=== PATIENT | female | born 1980 | race Two or more races ===

== ENCOUNTER 2021-08-23 11:16 | Emergency (ER) | payer MEDICAID, OTHER ==
[~2021-08-23] VITALS: Ht 162.6 cm; Wt 70.3 kg
[2021-08-23 12:38] LABS: Urine Bacteria FEW /hpf (None Seen); Urine Blood 3+ /uL (Negative); Urine WBC 1680 /hpf (0 - 5); Urine WBC Clumps PRESENT /hpf (None Seen)
[2021-08-23 12:43] LABS: Urine Specific Gravity 1.021 (1.001-1.035)
[2021-08-23 14:40] LABS: Basophils # (auto) 0 10 ^3/uL (0-0.2); Basophils % (auto) 0.3 % (0.0-2.0); Eosinophils # (auto) 0 10 ^3/uL (0-0.8); Eosinophils % (auto) 0.2 % (0.0-7.0); Hematocrit 40.4 % (36.0-46.0); Hemoglobin 13.4 g/dL (12.2-16.2); Lymphocytes # (auto) 0.7 10 ^3/uL (0.4-5.4); Mean Corpuscular Hemoglobin 28.6 pg (28.0-32.0); Mean Corpuscular Hgb Conc. 33.2 g/dL (32.0-36.0); Mean Corpuscular Volume 86.3 fL (80.0-100.0); Monocytes # (auto) 0.3 10 ^3/uL (0-1.3); Monocytes % (auto) 2.3 % (0.0-12.0); Neutrophils # (auto) 10.8 10 ^3/uL (1.6-8.6); Neutrophils % (auto) 91.2 % (37.0-80.0); Red Blood Cells 4.68 10^6/uL (4.0-5.20); Red Cell Distribution Width 14.8 % (11.8-14.3); White Blood Cell 11.9 10^3/uL (4.4-10.8)
[2021-08-23 14:44] LABS: INR 0.99 (0.9-1.15); Partial Thromboplastin Time 21.8 sec (23.6-33.0)
[2021-08-23 14:56] LABS: Albumin 3.9 g/dL (3.4-5.0); Calcium 8.9 mg/dL (8.5-10.1); Potassium 4.2 mmol/L (3.5-5.1)
[2021-08-23 14:59] LABS: Bilirubin, Total 0.5 mg/dL (0.2-1.0); Total Protein 7.2 g/dL (6.4-8.2)
[2021-08-23] MEDS ORDERED: cefTRIAXone 1GM/50ML D5W 50 ML IV ONE (18:00)
[2021-08-23] MEDS ORDERED: LACTATED RINGER'S 1,000 ML IV ONE (18:00)
[2021-08-23 19:01] VITALS: BP 139/76
== END 2021-08-23 21:10 | disposition left against medical advice (07) ==
LOC: ER 11:16 → OVERFLOW 19:35 → UNDOADMIN 19:35 → ER 21:10
DX: O20.8 Other hemorrhage in early pregnancy (principal); O26.891 Other specified pregnancy related conditions, first trimester; R42 Dizziness and giddiness; Z3A.01 Less than 8 weeks gestation of pregnancy
CPT/HCPCS: 36415; 76801; 76817; 80053; 81001; 84702; 85025; 85610; 85730; 86850; 86900; 86901; J0696

== ENCOUNTER 2022-08-02 19:09 | Emergency (ER) | payer MEDICAID ==
[~2022-08-02] VITALS: Ht 154.9 cm; Wt 70.9 kg
[2022-08-02] MEDS: diphenhdrAMINE HCL 50 MG/1 ML VL IM ONE ×2 (19:40→19:45)
[2022-08-02] MEDS ORDERED: DexAMETHasone SOD PHOS 10MG/1ML VIAL INJ IM ONE (19:45)
[2022-08-02 22:47] VITALS: BP 112/75
== END 2022-08-02 23:11 | disposition home or self-care (01) ==
LOC: ER 19:09
DX: T78.1XXA Other adverse food reactions, not elsewhere classified, initial encounter (principal); T78.3XXA Angioneurotic edema, initial encounter; X58.XXXA Exposure to other specified factors, initial encounter
CPT/HCPCS: 96372; 99283; J1100; J1200

== ENCOUNTER 2022-10-12 19:06 | Emergency (ER) | payer MEDICAID ==
[~2022-10-12] VITALS: Ht 157.5 cm; Wt 70.5 kg
[2022-10-12 19:15] VITALS: BP 140/97
[2022-10-12] MEDS ORDERED: EPINEPHrine HCL 1 MG/1 ML AMP IM ONE (19:30)
[2022-10-12] MEDS ORDERED: methylPREDNISolone SOD SUCC 125 MG/2 ML VL IV ONE (19:30)
[2022-10-12] MEDS ORDERED: diphenhdrAMINE HCL 50 MG/1 ML VL IV ONE (19:30)
[2022-10-12] MEDS ORDERED: FAMOTIDINE (10MG/ML) 2ML VL IV ONE (19:30)
== END 2022-10-13 00:51 | disposition left against medical advice (07) ==
LOC: ER 19:10
DX: T78.40XA Allergy, unspecified, initial encounter (principal); Z53.21 Procedure and treatment not carried out due to patient leaving prior to being seen by health care provider; X58.XXXA Exposure to other specified factors, initial encounter